=== PATIENT | male | born 2000 | race Caucasian/White ===

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

== ENCOUNTER 2023-12-29 15:26 | Emergency (ER) | payer OTHER ==
[2023-12-29 15:36] VITALS: BP 128/76; PULSE 106; RESP 20; TEMP 98.2; BMI 19.0
[2023-12-29] MEDS ORDERED: IBUPROFEN 600 MG TABLET (FP) PO ONE (16:16)
[2023-12-29] MEDS: IBUPROFEN 600 MG TABLET (FP) PO ONE (16:19)
== END 2023-12-29 16:49 | disposition home or self-care (01) ==
LOC: JERFT 15:26
DX: M54.6 Pain in thoracic spine (principal); V49.40XA Driver injured in collision with unspecified motor vehicles in traffic accident, initial encounter
CPT/HCPCS: 99283-25

== ENCOUNTER 2025-05-01 17:01 | Emergency (ER) | payer OTHER ==
[2025-05-01 17:12] VITALS: RESP 18; TEMP 98.6; BMI 19.3
[2025-05-01] MEDS ORDERED: NAPROXEN 500 MG TABLET ONE (18:54)
[2025-05-01] MEDS: NAPROXEN 500 MG TABLET PO ONE (19:02)
[2025-05-01 19:19] VITALS: BP 122/74; PULSE 90
== END 2025-05-01 19:19 | disposition home or self-care (01) ==
LOC: JERFT 17:01
DX: S20.219A Contusion of unspecified front wall of thorax, initial encounter (principal); K13.79 Other lesions of oral mucosa; V89.2XXA Person injured in unspecified motor-vehicle accident, traffic, initial encounter
CPT/HCPCS: 71046-TC-FY; 71101-TC-RT-FY; 99283-25